=== PATIENT | female | born 1960 | race African-American/Black ===

== ENCOUNTER 2021-08-06 22:33 | Emergency (ER) | payer OTHER ==
[2021-08-06 22:41] VITALS: BP 103/61; PULSE 98; TEMP 97; BMI 34.7
[2021-08-06] MEDS ORDERED: LORATADINE 10 MG TABLET ONE (23:58)
[2021-08-07] MEDS ORDERED: LORATADINE 10 MG TABLET PO ONE (00:15)
== END 2021-08-07 00:20 | disposition home or self-care (01) ==
LOC: JER 22:33
DX: S20.96XA Insect bite (nonvenomous) of unspecified parts of thorax, initial encounter (principal); S20.469A Insect bite (nonvenomous) of unspecified back wall of thorax, initial encounter; S40.861A Insect bite (nonvenomous) of right upper arm, initial encounter; S40.862A Insect bite (nonvenomous) of left upper arm, initial encounter; W57.XXXA Bitten or stung by nonvenomous insect and other nonvenomous arthropods, initial encounter; Y92.9 Unspecified place or not applicable
CPT/HCPCS: 99283-25

== ENCOUNTER 2022-03-27 19:01 | Emergency (ER) | payer OTHER ==
[2022-03-27 19:15] VITALS: BP 158/82; PULSE 78; TEMP 98.4; BMI 32.1
[2022-03-27 21:00] LABS: EOS % 1.6 % (0-4.5); HEMATOCRIT 35.1 % (32.4-45.2); HEMOGLOBIN 11.9 GM/dL (10.7-15.3); LYMPH % 30.4 % (8-40); MCH 29.1 pg (25.7-33.7); MCHC 33.8 g/dl (32.0-36.0); MEAN PLT VOLUME 6.3 fl (7.5-11.1); MONO % 7.8 % (3.8-10.2); NEUT % 59.2 % (42.8-82.8); PLATELET COUNT 264 10^3/uL (134-434); RBC 4.08 M/mm3 (3.60-5.2); RDW 14.8 % (11.6-15.6); WHITE BLOOD COUNT 8.1 K/mm3 (4.0-10.0)
[2022-03-27 21:28] LABS: ALBUMIN 3.4 g/dl (3.4-5.0); BLOOD UREA NITROGEN 12.4 mg/dL (7-18)
[2022-03-27 21:31] LABS: CREATININE 0.8 mg/dL (0.55-1.3)
[2022-03-27 21:32] LABS: TOT PROT 7.3 g/dl (6.4-8.2)
[2022-03-27 21:33] LABS: BILIRUBIN,TOTAL 0.3 mg/dL (0.2-1)
== END 2022-03-28 00:21 | disposition home or self-care (01) ==
LOC: JER 19:01
DX: R13.10 Dysphagia, unspecified (principal)
CPT/HCPCS: 36415; 71260-TC; 74177-TC; 80053; 83605; 83690; 84484; 85025; 93005; 93010; 99285-25; Q9967

== ENCOUNTER 2025-02-22 06:41 | Day surgery (SDC) | payer OTHER ==
[2025-02-08 12:39] VITALS: BMI 37.3
[2025-02-22 11:37] VITALS: RESP 18
[2025-02-22 11:40] VITALS: BP 140/77; PULSE 72; TEMP 98
== END 2025-02-22 11:54 | disposition home or self-care (01) ==
LOC: JASU-ENDO 06:41
PROVIDERS: ATTEND Internal Medicine Gastroenterology
PROC: 0DB78ZX Excision of Stomach, Pylorus, Via Natural or Artificial Opening Endoscopic, Diagnostic (ICD-10-PCS; 2025-02-22)
PROC: 0DB68ZX Excision of Stomach, Via Natural or Artificial Opening Endoscopic, Diagnostic (ICD-10-PCS; principal; 2025-02-22 10:00)
DX: I85.00 Esophageal varices without bleeding (principal); Z87.19 Personal history of other diseases of the digestive system
CPT/HCPCS: 88305-TC; 88342-TC

== ENCOUNTER 2025-05-18 05:48 | Day surgery (SDC) | payer OTHER ==
[2025-05-14 14:31] VITALS: BMI 23.1
[2025-05-18] MEDS ORDERED: DEXTROSE 5%-0.45% SALINE 1,000 ML IV SCH (10:00)
[2025-05-18] MEDS ORDERED: MIDAZOLAM HCL 2 MG/2 ML SINGLE DOSE VIAL ONE (10:16)
[2025-05-18] MEDS ORDERED: PROPOFOL 20 ML ONE (10:16)
[2025-05-18] MEDS ORDERED: SEVOFLURANE 250 ML BTL ONE (10:17)
[2025-05-18] MEDS ORDERED: ONDANSETRON 4 MG/2 ML VIAL ONE (10:17)
[2025-05-18] MEDS ORDERED: DEXAMETHASONE SOD PHOSPHATE 4 MG/1 ML VIAL ONE (10:17)
[2025-05-18] MEDS ORDERED: ceFAZolin SODIUM 1 GM VIAL ONE (10:31)
[2025-05-18] MEDS: ceFAZolin 2 GRAM PREMIX BAG IVPB ONE ×2 (10:31)
[2025-05-18] MEDS ORDERED: oxyCODONE HCL 5 MG TABLET PO PRN (11:04)
[2025-05-18] MEDS ORDERED: ONDANSETRON 4 MG/2 ML VIAL IVPUSH PRN (11:04)
[2025-05-18] MEDS: LACTATED RINGERS SOLUTION 1,000 ML IV SCH (11:19)
[2025-05-18 14:48] VITALS: RESP 20; TEMP 97.7
[2025-05-18 14:51] VITALS: BP 118/72; PULSE 75
== END 2025-05-18 14:25 | disposition home or self-care (01) ==
LOC: JASU-SURG 05:48
PROVIDERS: ATTEND Urology
PROC: 0TBD7ZZ Excision of Urethra, Via Natural or Artificial Opening (ICD-10-PCS; principal; 2025-05-18 09:30)
DX: N36.2 Urethral caruncle (principal)
CPT/HCPCS: 88305-TC; 94760

== ENCOUNTER 2025-06-09 09:01 | Emergency (ER) | payer OTHER ==
[2025-06-09 09:14] VITALS: BP 127/81; PULSE 83; RESP 16; TEMP 99.1; BMI 35.3
== END 2025-06-09 10:44 | disposition home or self-care (01) ==
LOC: JER 09:01 → JERFT 09:01
DX: M17.11 Unilateral primary osteoarthritis, right knee (principal); I83.811 Varicose veins of right lower extremity with pain; I83.891 Varicose veins of right lower extremity with other complications; M25.561 Pain in right knee; G89.29 Other chronic pain
CPT/HCPCS: 73560-TC-RT-FY; 99283-25